=== PATIENT | female | born 2000 | race African-American/Black ===

== ENCOUNTER 2019-01-12 14:47 | Emergency (ER) | payer SELFPAY ==
[~2019-01-12] VITALS: Ht 170.2 cm; Wt 48.8 kg
[2019-01-12] MEDS ORDERED: AMOX500C PO (15:02)
--- NOTE | 2019-01-12 15:02 | PHYS DOC ---
Adult General Chief Complaint Chief Complaint: SORE THROAT HPI HPI Patient is a 18-year-old female who presents with complaint of sore throat for approximately a week. Patient states symptoms are worsening. She is not sure whether or not she is been running a fever. She denies any nausea or vomiting. She denies any chest pain. She also denies any cough or shortness breath.[] Review of Systems Review of Systems Constitutional: Denies fever or chills [] Eyes: Denies change in visual acuity, redness, or eye pain [] HENT: Positive sore throat [] Respiratory: Denies cough or shortness of breath [] Cardiovascular: No additional information not addressed in HPI [] Physical Exam Physical Exam Constitutional: Well developed, well nourished, no acute distress, non-toxic appearance. [] HENT: Normocephalic, atraumatic, bilateral external ears normal, pharyngeal erythema is noted without exudates. [] Neck: Normal range of motion, no tenderness, supple, no stridor. [] Cardiovascular:Heart rate regular rhythm, no murmur [] Lungs & Thorax: Bilateral breath sounds clear to auscultation [] EKG EKG [] Radiology/Procedures Radiology/Procedures [] Course & Med Decision Making Course & Med Decision Making Pertinent Labs and Imaging studies reviewed. (See chart for details) [] Dragon Disclaimer Dragon Disclaimer This electronic medical record was generated, in whole or in part, using a voice recognition dictation system. Departure Departure: Impression: Primary Impression: Pharyngitis Disposition: 01 HOME, SELF-CARE Condition: STABLE Referrals: PCP,UNKNOWN (PCP) Patient Instructions: Viral and Bacterial Pharyngitis Scripts Amoxicillin (AMOXICILLIN) 500 Mg Capsule 1 CAP PO TID for infection, #30 CAP Prov: SYEDA TIPTON Jr. DO 01/12/19 Problem Qualifiers Primary Impression: Pharyngitis Pharyngitis/tonsillitis etiology: unspecified etiology Qualified Codes: J02.9 - Acute pharyngitis, unspecified SYEDA TIPTON Jr. DO Jan 12, 2019 15:02
[2019-01-12 15:08] VITALS: BP 106/67
== END 2019-01-12 15:06 | disposition home or self-care (01) ==
LOC: ER 14:47
DX: J02.9 Acute pharyngitis, unspecified (principal)
CPT/HCPCS: 99283

== ENCOUNTER 2019-04-30 13:18 | Emergency (ER) | payer OTHER ==
[~2019-04-30] VITALS: Ht 160 cm; Wt 47.1 kg
[~2019-04-30 13:18] MED LIST: AMOX500C PO
[2019-04-30 13:25] VITALS: BP 129/82
--- NOTE | 2019-04-30 13:32 | PHYS DOC ---
Past History Past Medical History: Anemia Past Surgical History: No Surgical History Smoking: Less than 1pk/day (just quit when she found out she was ) Alcohol Use: Rarely (just quit when she found out she was ) Drug Use: Marijuana (just quit when she found out she was ) Adult General Chief Complaint Chief Complaint: VAGINAL BLEEDING [facility] Patient is a 18 year old female who presents for evaluation of vaginal spotting and some bleeding that started about 2 days ago. She also has some left lower abdominal tenderness. Patient states she has a positive home test and is scheduled to see her MARKET DEVELOPER in the next couple of days. Patient is a 1 para 0. Her last menstrual period was on March 17. Patient denies other complaints and is benign appearing Review of Systems Review of Systems Constitutional: Denies fever or chills [] Eyes: Denies change in visual acuity, redness, or eye pain [] HENT: Denies nasal congestion or sore throat [] Respiratory: Denies cough or shortness of breath [] Cardiovascular: No additional information not addressed in HPI [] GI: LLQ abdominal pain, some nausea, no vomiting or bloody stools, no diarrhea [] : Denies dysuria or hematuria [] Musculoskeletal: Denies back pain or joint pain [] Integument: Denies rash or skin lesions [] Neurologic: Denies headache, focal weakness or sensory changes [] Endocrine: Denies polyuria or polydipsia [] All other systems were reviewed and found to be within normal limits, except as documented in this note. Allergies Allergies Allergies Coded Allergies Type Severity Reaction Last Updated Verified No Known Drug Allergies 01/12/19 No Physical Exam Physical Exam Constitutional: Well developed, well nourished, mild acute distress, non-toxic appearance. [] HENT: Normocephalic, atraumatic, bilateral external ears normal, oropharynx moist, no oral exudates, nose normal. [] Eyes: PERRL, EOMI, conjunctiva normal, no discharge. [] Neck: Normal range of motion, no tenderness, supple[] Cardiovascular:Heart rate regular rhythm, no murmur [] Lungs & Thorax: Bilateral breath sounds clear to auscultation [] Abdomen: Bowel sounds normal, soft, minimal lower and left lower tender, no masses. [] Skin: Warm, dry, no erythema, no rash. [] Back: No tenderness, no CVA tenderness. [] Extremities: No tenderness, no cyanosis, no clubbing, ROM intact, no edema. [] Neurologic: Alert and oriented X 3, normal motor function, normal sensory function, no focal deficits noted. [] Psychologic: Affect normal, judgement normal, mood normal. [] HATCHERY LABORER: Nursing plumber's helper present. Os slightly open and dark blood present. Minimal uterine tenderness, no adnexal tenderness EKG EKG [] Radiology/Procedures Radiology/Procedures PATIENT: JONATHON PABON ACCOUNT: [id number] : 2000 LOCATION: ER AGE: 18 SEX: F EXAM STATUS: REG ER ORD. PHYSICIAN: MAHOGANY ANTONIO DO REASON: early , LLQ, pain and spotting PROCEDURE: OB <14 WKS OB ultrasound less than 14 weeks 04/30/2019 CLINICAL HISTORY: Early first trimester with left sided pelvic pain and vaginal spotting. TECHNIQUE: Using the distended urinary bladder as a sonographic window, a real-time ultrasound examination of pelvis was performed. Multiple images were obtained. The patient refused transvaginal imaging. FINDINGS: The uterus is normal in size. It measures 10.1 x 5.4 x 3.6 cm in longitudinal, transverse, and AP dimensions. An oval-shaped fluid collection is seen within the endometrial canal consistent with an early gestational sac. There is a small yolk sac seen within the structure. No embryonic pole is seen at this time to confirm a living IUP. The mean sac diameter is 8.0 mm which corresponds to an estimated gestational age by ultrasound of 5 weeks 4 days plus or minus a standard deviation of 6 days. The uterus is otherwise within normal limits. Both ovaries are within normal limits in size and echogenicity. The right ovary measures 2.9 x 2.8 x 1.9 cm in size. The left ovary measures 3.0 x 2.6 x 1.4 cm in size. Normal color-flow and postoperative imaging to both ovaries is seen. No adnexal mass is noted. No free fluid is seen. IMPRESSION: Findings consistent most likely with a very early IUP as discussed above. Electronically signed by: Joni Cope MD (04/30/2019 2:36 PM) [facility] – [place], [place] DICTATED AND SIGNED BY: JONI COPE MD DATE: 04/30/19 1436 CC: PCP,SHELBIE; MAHOGANY ANTONIO DO ~ Course & Med Decision Making Course & Med Decision Making Pertinent Labs and Imaging studies reviewed. (See chart for details) 1345 urine hCG is positive. Will order sonogram to evaluate IUP 1455 early IUP noted on vaginal US. No obvious ectopic . Beta quant hCG was approximately 7000. Patient is O+ blood type. CBC and chemistries results unremarkable. Differential diagnosis included ectopic versus threatened miscarriage versus early bleeding. 1310 after pelvic exam I suspect patient is a threatened miscarriage. She will be given detailed follow-up instructions. She already has an appointment to see her MARKET DEVELOPER tomorrow Paradise Disclaimer Paradise Disclaimer This electronic medical record was generated, in whole or in part, using a voice recognition dictation system. Departure Departure: Impression: Primary Impression: Early stage of Additional Impression: Threatened in first trimester Disposition: HOME, SELF-CARE Condition: STABLE Referrals: PCPSHELBIE (PCP) Patient Instructions: Threatened Miscarriage, [id number] Additional Instructions: Keep your appointment with your MARKET DEVELOPER tomorrow. Pelvic rest meaning no intercourse or tampons. If you have excessive heavy bleeding more than 1 pad per hour return to the hospital. Otherwise you will need a repeat blood hormone test in several days as well as a repeat sonogram. Those could be scheduled through your MARKET DEVELOPER. Follow-up instructions and return if worse Scripts Pnv Cmb#95/Ferrous Fumarate/Fa ( TABLET) 1 Each Tablet 1 TAB PO DAILY for early , #7 TAB 0 Refills Prov: MAHOGANY ANTONIO DO 04/30/19 Problem Qualifiers MAHOGANY ANTONIO DO Apr 30, 2019 13:32
[2019-04-30 13:53] LABS: BASO # 0.1 x10^3/uL (0.0-0.2); BASO % 1 % (0-3); EOS # 0.1 x10^3/uL (0.0-0.7); EOS % 1 % (0-3); HEMATOCRIT 37.9 % (36.0-47.0); HEMOGLOBIN 12.7 g/dL (12.0-15.5); LYMPH # 1.7 x10^3/uL (1.0-4.8); LYMPH % 20 % (24-48); MEAN CORPUSCULAR HEMOGLOBIN 28 pg (25-35); MEAN CORPUSCULAR HGB CONC 33 g/dL (31-37); MEAN CORPUSCULAR VOLUME 82 fL (79-100); MONO # 0.5 x10^3/uL (0.0-1.1); MONO % 6 % (0-9); NEUT # 5.9 x10^3uL (1.8-7.7); NEUT % 72 % (31-73); PLATELET COUNT 189 x10^3/uL (140-400); RED BLOOD COUNT 4.61 x10^6/uL (3.50-5.40); RED CELL DISTRIBUTION WIDTH 17.2 % (11.5-14.5); WHITE BLOOD COUNT 8.2 x10^3/uL (4.0-11.0)
[2019-04-30 14:00] LABS: CALCIUM 9.4 mg/dL (8.5-10.1); CREATININE 0.6 mg/dL (0.6-1.0); GFR 154.2; POTASSIUM 3.3 mmol/L (3.5-5.1)
[2019-04-30 14:14] LABS: ALBUMIN 4.2 g/dL (3.4-5.0); ALBUMIN/GLOBULIN RATIO 1.2 (1.0-1.7); TOTAL BILIRUBIN 0.5 mg/dL (0.2-1.0); TOTAL PROTEIN 7.8 g/dL (6.4-8.2)
[2019-04-30 14:26] LABS: BACTERIA,URINE FEW /HPF (0-FEW); BILIRUBIN,URINE NEG (NEG); CLARITY,URINE HAZY; COLOR,URINE YELLOW; GLUCOSE,URINE NEG (NEG); NITRITE,URINE NEG (NEG); SQUAMOUS EPITHELIAL CELL,UR FEW /LPF
--- NOTE | 2019-04-30 14:39 | RAD ---
OB ultrasound less than 14 weeks 04/30/2019 CLINICAL HISTORY: Early first trimester with left sided pelvic pain and vaginal spotting. TECHNIQUE: Using the distended urinary bladder as a sonographic window, a real-time ultrasound examination of pelvis was performed. Multiple images were obtained. The patient refused transvaginal imaging. FINDINGS: The uterus is normal in size. It measures 10.1 x 5.4 x 3.6 cm in longitudinal, transverse, and AP dimensions. An oval-shaped fluid collection is seen within the endometrial canal consistent with an early gestational sac. There is a small yolk sac seen within the structure. No embryonic pole is seen at this time to confirm a living IUP. The mean sac diameter is 8.0 mm which corresponds to an estimated gestational age by ultrasound of 5 weeks 4 days plus or minus a standard deviation of 6 days. The uterus is otherwise within normal limits. Both ovaries are within normal limits in size and echogenicity. The right ovary measures 2.9 x 2.8 x 1.9 cm in size. The left ovary measures 3.0 x 2.6 x 1.4 cm in size. Normal color-flow and postoperative imaging to both ovaries is seen. No adnexal mass is noted. No free fluid is seen. IMPRESSION: Findings consistent most likely with a very early IUP as discussed above. Electronically signed by: Joni Cope MD (04/30/2019 2:36 PM) [facility] – [place]
[2019-04-30] MEDS ORDERED: PNV1TABL25 PO (15:16)
[2019-05-01 20:07] LABS: CHLAMYDIA PROBE Negative (Negative)
== END 2019-04-30 15:20 | disposition home or self-care (01) ==
LOC: ER 13:18
DX: O20.0 Threatened abortion (principal); O99.011 Anemia complicating pregnancy, first trimester; Z87.891 Personal history of nicotine dependence; Z3A.00 Weeks of gestation of pregnancy not specified
CPT/HCPCS: 36415; 76801; 80053; 81001; 81025; 84702; 85025; 86900; 86901; 87086; 87491; 87591; 99284; Q0111

== ENCOUNTER 2020-01-09 09:11 | Emergency (ER) | payer OTHER ==
[~2020-01-09] VITALS: Ht 160 cm; Wt 47.1 kg
[~2020-01-09 09:11] MED LIST changes: +PNV1TABL25 PO
[2020-01-09 09:33] VITALS: BP 124/86
--- NOTE | 2020-01-09 10:00 | PHYS DOC ---
Past History Past Medical History: Anemia Past Surgical History: No Surgical History Smoking: Less than 1pk/day Alcohol Use: None Drug Use: Marijuana General Adult EDM: Chief Complaint: ABDOMINAL PAIN IN HPI: HPI: History obtained from patient. Patient is a 19-year-old female G2, P0 with no reported PMH who presents with chief complaint of nausea and vomiting. Yesterday she was 12 weeks . She states that last night after eating AAA she had 2 episodes of vomiting. She states earlier this morning she had 2 episodes of vomiting again. She noted some red-tinged vomitus prior to arrival. She notes that she has been taking Zofran in the mornings for her morning sickness but does not like some of the side effects of this medication. States it makes her feel somewhat sleepy. She does note that she smokes marijuana to help with her nausea. She does note some mild right upper quadrant abdominal discomfort after vomiting. She does think that she has had an ultrasound to confirm IUP but is not sure. Denies vaginal bleeding or discharge. Denies dysuria, hematuria, or polyuria. Denies any abdominal surgical history. Denies shortness of breath, cough or fevers. No other complaints. Review of Systems: Review of Systems: Constitutional: Denies fever or chills Eyes: Denies change in visual acuity HENT: Denies nasal congestion or sore throat Respiratory: Denies cough or shortness of breath Cardiovascular: Denies chest pain or edema GI: Positive for nausea and vomiting : Denies dysuria Musculoskeletal: Denies back pain or joint pain Integument: Denies rash Neurologic: Denies headache, focal weakness or sensory changes Endocrine: Denies polyuria or polydipsia Lymphatic: Denies swollen glands Psychiatric: Denies depression or anxiety Allergies: Allergies: Allergies Coded Allergies Type Severity Reaction Last Updated Verified No Known Drug Allergies 01/12/19 No Physical Exam: PE: Constitutional: Well developed, well nourished, no acute distress, non-toxic appearance. [] HENT: Normocephalic, atraumatic, bilateral external ears normal, oropharynx moist, no oral exudates, nose normal. [] Eyes: PERRLA, EOMI, conjunctiva normal, no discharge. [] Neck: Normal range of motion, no tenderness, supple, no stridor. [] Cardiovascular:Heart rate regular rhythm, no murmur [] Lungs & Thorax: Bilateral breath sounds clear to auscultation [] Abdomen: Soft, nontender, nonacute abdomen. No involuntary guarding or rigidity noted. No acute peritonitis. Skin: Warm, dry, no erythema, no rash. [] Back: No tenderness, no CVA tenderness. [] Extremities: No tenderness, no cyanosis, no clubbing, ROM intact, no edema. [] Neurologic: Alert and oriented X 3, normal motor function, normal sensory function, no focal deficits noted. [] Psychologic: Affect normal, judgement normal, mood normal. [] Current Patient Data: Labs: Laboratory Tests Test 01/09/20 09:58 01/09/20 10:49 White Blood Count 8.6 x10^3/uL Red Blood Count 4.42 x10^6/uL Hemoglobin 11.6 g/dL Hematocrit 35.6 % Mean Corpuscular Volume 81 fL Mean Corpuscular Hemoglobin 26 pg Mean Corpuscular Hemoglobin Concent 32 g/dL Red Cell Distribution Width 16.7 % Platelet Count 195 x10^3/uL Neutrophils (%) (Auto) 76 % Lymphocytes (%) (Auto) 17 % Monocytes (%) (Auto) 6 % Eosinophils (%) (Auto) 0 % Basophils (%) (Auto) 1 % Neutrophils # (Auto) 6.5 x10^3uL Lymphocytes # (Auto) 1.4 x10^3/uL Monocytes # (Auto) 0.5 x10^3/uL Eosinophils # (Auto) 0.0 x10^3/uL Basophils # (Auto) 0.1 x10^3/uL Maternal Serum HCG Beta Subunit 086647 mIU/mL Sodium Level 131 mmol/L Potassium Level 3.3 mmol/L Chloride Level 97 mmol/L Carbon Dioxide Level 25 mmol/L Anion Gap 9 Blood Urea Nitrogen 10 mg/dL Creatinine 0.6 mg/dL Estimated GFR (Cockcroft-Gault) 152.7 BUN/Creatinine Ratio 17 Glucose Level 107 mg/dL Calcium Level 9.7 mg/dL Total Bilirubin 0.5 mg/dL Aspartate Amino Transf (AST/SGOT) 20 U/L Alanine Aminotransferase (ALT/SGPT) 16 U/L Alkaline Phosphatase 52 U/L Total Protein 8.1 g/dL Albumin 3.7 g/dL Albumin/Globulin Ratio 0.8 Lipase 70 U/L Urine Collection Type Unknown Urine Color Yellow Urine Clarity Hazy Urine pH 7.0 Urine Specific Morrill 1.025 Urine Protein Neg Urine Glucose (UA) Neg mg/dL Urine Ketones (Stick) Neg mg/dL Urine Blood Trace Urine Nitrite Neg Urine Bilirubin Neg Urine Urobilinogen Dipstick 2.0 mg/dL Urine Leukocyte Esterase Neg Urine RBC 1-2 /HPF Urine WBC Occ /HPF Urine Squamous Epithelial Cells Mod /LPF Urine Amorphous Sediment Present /HPF Urine Bacteria Few /HPF Vital Signs: Vital Signs Date Time Temp Pulse Resp B/P (MAP) Pulse Ox O2 Delivery O2 Flow Rate FiO2 01/09/20 09:33 97.7 80 14 124/86 (99) 100 Room Air EKG: EKG: [] Radiology/Procedures: Radiology/Procedures: [place] [address] IMAGING REPORT Signed PATIENT: JONATHON PABON ACCOUNT: [id number] : 2000 LOCATION: ER AGE: 19 SEX: F EXAM STATUS: REG ER ORD. PHYSICIAN: SIM CRAIG DO REASON: abdominal pain with PROCEDURE: OB <14 WKS EXAM: First Trimester OB Ultrasound INDICATION: Reason: abdominal pain with / Spl. Instructions: / History: TECHNIQUE: Real-time first trimester obstetrical ultrasound was performed with permanent freeze-frame documentation. COMPARISON: None. FINDINGS: GESTATIONAL SAC: Gestational sac shape and amniotic fluid volume within normal limits. POLE: Unremarkable. Yolk sac not visualized. CROWN RUMP LENGTH: 5.6 cm HEART RATE: 153 bpm PLACENTA: Too early to adequately assess. MATERNAL UTERUS: Uterus measures 8.4 x 8.9 x 8.8 cm and appears normal. Cervical length is 2.8 cm. MATERNAL ADNEXA: Normal ovaries. Right ovary measures 3.8 x 2.0 x 1.9 cm. Left ovary measures 3.3 x 2.6 x 2.2 cm. AGE/DATES: Gestational Age by LMP: 12 weeks 0 days Gestational Age by US: 12 weeks 1 day EDC by LMP: July 23, 2020 EDC by US: July 22, 2020 IMPRESSION: Normal viable first trimester OB ultrasound. Estimated gestational age of 12 weeks 1 day and EDC of July 22, 2020. Electronically signed by: Dionte Dao MD (01/09/2020 10:16 AM) [id number] DICTATED AND SIGNED BY: DIONTE DAO MD DATE: 01/09/20 1016 CC: PCPSHELBIE; SIM CRAIG DO ~MTH0 0 [] Heart Score: Risk Factors: Risk Factors: DM, Current or recent (<one month) smoker, HTN, HLP, family history of CAD, obesity. Risk Scores: Score 0 - 3: 2.5% MACE over next 6 weeks - Discharge Home Score 4 - 6: 20.3% MACE over next 6 weeks - Admit for Clinical Observation Score 7 - 10: 72.7% MACE over next 6 weeks - Early Invasive Strategies Course & Med Decision Making: Course & Med Decision Making Pertinent Labs and Imaging studies reviewed. (See chart for details) [] Patient is a well-appearing 19-year-old female who presents with chief complaint of nausea and vomiting that began yesterday evening associated . Initial vital signs unremarkable. Exam overall reassuring. Pelvic exam deferred as she is not having any lower abdominal pain, vaginal bleeding or discharge. Given she did report some mild right upper quadrant pain basic labs were obtained. No signs of LFT elevation or lipase elevation. Urinalysis does not reveal signs consistent with infection. Ultrasound was obtained revealing intrauterine approximate 12 weeks and 1 day. Her symptoms were well controlled and she has tolerated p.o. the emergency department. Repeat abdominal exam remains benign. Overall I do feel she is appropriate for discharge home. She states that she does not like the side effects of Zofran. She will be discharged home with a prescription of Diclegis. Instructed to follow-up with her primary care physician and REGIONAL CONTROLLER in the next 2 to 3 days. Return precautions discussed and understood. Stable for discharge home. Dragon Disclaimer: Dragjaleel Disclaimer: This electronic medical record was generated, in whole or in part, using a voice recognition dictation system. Departure Departure: Impression: Primary Impression: Nausea and vomiting Qualified Codes: R11.2 - Nausea with vomiting, unspecified Additional Impression: Qualified Codes: Z3A.12 - 12 weeks gestation of Disposition: 01 DC HOME SELF CARE/HOMELESS Condition: STABLE Referrals: PCPSHELBIE (PCP) Patient Instructions: Nausea and Vomiting Additional Instructions: Please follow-up with your REGIONAL CONTROLLER and primary care physician next week. Scripts Doxylamine/Pyridoxine Hcl (MATHIEU CAANLES 10-10 MG TABLET) 1 Each Tablet.dr 2 TAB PO QHS for nausea for 10 Days, #20 TAB 0 Refills Prov: SIM CRAIG DO 01/09/20 SIM CRAIG DO Jan 09, 2020 10:00
--- NOTE | 2020-01-09 10:18 | RAD ---
EXAM: First Trimester OB Ultrasound INDICATION: Reason: abdominal pain with / Spl. Instructions: / History: TECHNIQUE: Real-time first trimester obstetrical ultrasound was performed with permanent freeze-frame documentation. COMPARISON: None. FINDINGS: GESTATIONAL SAC: Gestational sac shape and amniotic fluid volume within normal limits. POLE: Unremarkable. Yolk sac not visualized. CROWN RUMP LENGTH: 5.6 cm HEART RATE: 153 bpm PLACENTA: Too early to adequately assess. MATERNAL UTERUS: Uterus measures 8.4 x 8.9 x 8.8 cm and appears normal. Cervical length is 2.8 cm. MATERNAL ADNEXA: Normal ovaries. Right ovary measures 3.8 x 2.0 x 1.9 cm. Left ovary measures 3.3 x 2.6 x 2.2 cm. AGE/DATES: Gestational Age by LMP: 12 weeks 0 days Gestational Age by US: 12 weeks 1 day EDC by LMP: July 23, 2020 EDC by US: July 22, 2020 IMPRESSION: Normal viable first trimester OB ultrasound. Estimated gestational age of 12 weeks 1 day and EDC of July 22, 2020. Electronically signed by: Juan Dao MD (01/09/2020 10:16 AM) [id number]
[2020-01-09] MEDS ORDERED: DOXY1TAB3 PO (10:25)
[2020-01-09 10:32] LABS: BASO # 0.1 x10^3/uL (0.0-0.2); BASO % 1 % (0-3); EOS % 0 % (0-3); HEMATOCRIT 35.6 % (36.0-47.0); HEMOGLOBIN 11.6 g/dL (12.0-15.5); LYMPH # 1.4 x10^3/uL (1.0-4.8); LYMPH % 17 % (24-48); MEAN CORPUSCULAR HEMOGLOBIN 26 pg (25-35); MEAN CORPUSCULAR HGB CONC 32 g/dL (31-37); MEAN CORPUSCULAR VOLUME 81 fL (79-100); MONO # 0.5 x10^3/uL (0.0-1.1); MONO % 6 % (0-9); NEUT # 6.5 x10^3uL (1.8-7.7); NEUT % 76 % (31-73); PLATELET COUNT 195 x10^3/uL (140-400); RED BLOOD COUNT 4.42 x10^6/uL (3.50-5.40); RED CELL DISTRIBUTION WIDTH 16.7 % (11.5-14.5); WHITE BLOOD COUNT 8.6 x10^3/uL (4.0-11.0)
[2020-01-09 10:37] LABS: CALCIUM 9.7 mg/dL (8.5-10.1); CREATININE 0.6 mg/dL (0.6-1.0); GFR 152.7; POTASSIUM 3.3 mmol/L (3.5-5.1)
[2020-01-09 10:42] LABS: ALBUMIN 3.7 g/dL (3.4-5.0); ALBUMIN/GLOBULIN RATIO 0.8 (1.0-1.7); TOTAL BILIRUBIN 0.5 mg/dL (0.2-1.0); TOTAL PROTEIN 8.1 g/dL (6.4-8.2)
[2020-01-09 11:08] LABS: BILIRUBIN,URINE NEG (NEG); CLARITY,URINE HAZY; COLOR,URINE YELLOW; GLUCOSE,URINE NEG (NEG)
[2020-01-09 11:09] LABS: AMORPHOUS SEDIMENT,UR PRESENT /HPF; BACTERIA,URINE FEW /HPF (0-FEW); NITRITE,URINE NEG (NEG); SQUAMOUS EPITHELIAL CELL,UR MOD /LPF; WBC,URINE OCC /HPF (0-4)
== END 2020-01-09 11:19 | disposition home or self-care (01) ==
LOC: ER 09:11
DX: O21.9 Vomiting of pregnancy, unspecified (principal); D64.9 Anemia, unspecified; F12.90 Cannabis use, unspecified, uncomplicated; F17.200 Nicotine dependence, unspecified, uncomplicated; Z3A.12 12 weeks gestation of pregnancy
CPT/HCPCS: 36415; 76801; 80053; 81001; 83690; 84702; 85025; 99284

== ENCOUNTER 2020-05-11 10:13 | Emergency (ER) | payer OTHER ==
[~2020-05-11] VITALS: Ht 160 cm; Wt 52.0 kg
[~2020-05-11 10:13] MED LIST changes: +DOXY1TAB3 PO
[2020-05-11 10:25] VITALS: BP 127/62
[2020-05-11] MEDS ORDERED: METOCLOPRAMIDE 10 MG TABLET PO ONE (11:00)
[2020-05-11] MEDS ORDERED: METOCLOPRAMIDE HCL 10 MG/2 ML VIAL. ONE (11:11)
[2020-05-11] MEDS ORDERED: IV NORMAL SALINE 1,000ML 1,000 ML IV ONE (11:30)
[2020-05-11 11:31] LABS: BASO # 0.1 x10^3/uL (0.0-0.2); BASO % 1 % (0-3); EOS % 0 % (0-3); HEMATOCRIT 27.6 % (36.0-47.0); HEMOGLOBIN 8.7 g/dL (12.0-15.5); LYMPH # 1.3 x10^3/uL (1.0-4.8); LYMPH % 12 % (24-48); MEAN CORPUSCULAR HEMOGLOBIN 23 pg (25-35); MEAN CORPUSCULAR HGB CONC 32 g/dL (31-37); MEAN CORPUSCULAR VOLUME 73 fL (79-100); MONO # 0.7 x10^3/uL (0.0-1.1); MONO % 7 % (0-9); NEUT # 8.8 x10^3uL (1.8-7.7); NEUT % 80 % (31-73); PLATELET COUNT 127 x10^3/uL (140-400); RED BLOOD COUNT 3.76 x10^6/uL (3.50-5.40); RED CELL DISTRIBUTION WIDTH 17.2 % (11.5-14.5); WHITE BLOOD COUNT 10.9 x10^3/uL (4.0-11.0)
[2020-05-11 11:33] LABS: BILIRUBIN,URINE NEG (NEG); CLARITY,URINE CLOUDY; COLOR,URINE YELLOW; GLUCOSE,URINE NEG (NEG)
[2020-05-11 11:34] LABS: AMORPHOUS SEDIMENT,UR PRESENT /HPF; BACTERIA,URINE FEW /HPF (0-FEW); NITRITE,URINE NEG (NEG); RBC,URINE OCC /HPF (0-2); SQUAMOUS EPITHELIAL CELL,UR MANY /LPF
--- NOTE | 2020-05-11 11:47 | PHYS DOC ---
Past History Past Medical History: Hypothyroid, Other Additional Past Medical Histor: Sickle cell trait Past Surgical History: No Surgical History Smoking: Less than 1pk/day Alcohol Use: None Drug Use: Marijuana Social History Narrative: Occasional THC Adult General Chief Complaint Chief Complaint: VOMITING IN [facility] HPI Patient is a 19-year-old female who states she is 29 weeks by last menstrual period with a past history of hypothyroidism now presenting emergency department complaining of onset of nausea. Patient states that for the last 3 days she is been having worsening nausea since she associates with her . Patient is the last day she vomited 4 times nonbloody nonbilious most of the morning. Patient states her nausea recurred again this morning. Patient denies taking any medication prior. Denies any abdominal pain, dizziness, lightheadedness, fever, chills, back pain or chest pain. Review of Systems Review of Systems Constitutional: Denies fever or chills [] Eyes: Denies change in visual acuity, redness, or eye pain [] HENT: Denies nasal congestion or sore throat [] Respiratory: Denies cough or shortness of breath [] Cardiovascular: No additional information not addressed in HPI [] GI: Denies abdominal pain, nausea, vomiting, bloody stools or diarrhea [] : Denies dysuria or hematuria [] Musculoskeletal: Denies back pain or joint pain [] Integument: Denies rash or skin lesions [] Neurologic: Denies headache, focal weakness or sensory changes [] Endocrine: Denies polyuria or polydipsia [] All other systems were reviewed and found to be within normal limits, except as documented in this note. Current Medications Current Medications Current Medications Medications (Trade) Dose Ordered Sig/Alley Start Time Stop Time Status Last Admin Dose Admin Metoclopramide HCl (Reglan Vial) 10 mg STK-MED ONCE 05/11/20 11:11 05/11/20 11:11 DC Metoclopramide HCl (Reglan) 10 mg 1X ONCE 05/11/20 11:00 05/11/20 11:01 DC Sodium Chloride 1,000 ml @ 1,000 mls/hr 1X ONCE 05/11/20 11:30 05/11/20 12:29 05/11/20 11:32 1,000 MLS/HR Allergies Allergies Allergies Coded Allergies Type Severity Reaction Last Updated Verified No Known Drug Allergies 05/11/20 No Physical Exam Physical Exam Constitutional: Well developed, well nourished, no acute distress, non-toxic appearance. [] HENT: Normocephalic, atraumatic, bilateral external ears normal, oropharynx moist, no oral exudates, nose normal. [] Eyes: PERRLA, EOMI, conjunctiva normal, no discharge. [] Neck: Normal range of motion, no tenderness, supple, no stridor. [] Cardiovascular:Heart rate regular rhythm, no murmur [] Lungs & Thorax: Bilateral breath sounds clear to auscultation [] Abdomen: Bowel sounds normal, soft, no tenderness, no masses, no pulsatile masses. Gravid uterus consistent with dates Skin: Warm, dry, no erythema, no rash. [] Back: No tenderness, no CVA tenderness. [] Extremities: No tenderness, no cyanosis, no clubbing, ROM intact, no edema. [] Neurologic: Alert and oriented X 3, normal motor function, normal sensory function, no focal deficits noted. [] Psychologic: Affect normal, judgement normal, mood normal. [] Current Patient Data Vital Signs Vital Signs Date Time Temp Pulse Resp B/P (MAP) Pulse Ox O2 Delivery O2 Flow Rate FiO2 05/11/20 10:25 97.9 80 16 127/62 (83) 100 Lab Results Laboratory Tests Test 05/11/20 10:27 05/11/20 11:05 Urine Collection Type Unknown Urine Color Yellow Urine Clarity Cloudy Urine pH >8.5 Urine Specific [place] 1.015 Urine Protein 30 mg/dl (NEG-TRACE) Urine Glucose (UA) Neg mg/dL (NEG) Urine Ketones (Stick) Neg mg/dL (NEG) Urine Blood Neg (NEG) Urine Nitrite Neg (NEG) Urine Bilirubin Neg (NEG) Urine Urobilinogen Dipstick 1.0 mg/dL (0.2 mg/dL) Urine Leukocyte Esterase Neg (NEG) Urine RBC Occ /HPF (0-2) Urine WBC 1-4 /HPF (0-4) Urine Squamous Epithelial Cells Many /LPF Urine Amorphous Sediment Present /HPF Urine Bacteria Few /HPF (0-FEW) White Blood Count 10.9 x10^3/uL (4.0-11.0) Red Blood Count 3.76 x10^6/uL (3.50-5.40) Hemoglobin 8.7 g/dL (12.0-15.5) L Hematocrit 27.6 % (36.0-47.0) L Mean Corpuscular Volume 73 fL (79-100) L Mean Corpuscular Hemoglobin 23 pg (25-35) L Mean Corpuscular Hemoglobin Concent 32 g/dL (31-37) Red Cell Distribution Width 17.2 % (11.5-14.5) H Platelet Count 127 x10^3/uL (140-400) L Neutrophils (%) (Auto) 80 % (31-73) H Lymphocytes (%) (Auto) 12 % (24-48) L Monocytes (%) (Auto) 7 % (0-9) Eosinophils (%) (Auto) 0 % (0-3) Basophils (%) (Auto) 1 % (0-3) Neutrophils # (Auto) 8.8 x10^3uL (1.8-7.7) H Lymphocytes # (Auto) 1.3 x10^3/uL (1.0-4.8) Monocytes # (Auto) 0.7 x10^3/uL (0.0-1.1) Eosinophils # (Auto) 0.0 x10^3/uL (0.0-0.7) Basophils # (Auto) 0.1 x10^3/uL (0.0-0.2) EKG EKG [] Radiology/Procedures Radiology/Procedures [] Heart Score C/O Chest Pain: No Risk Factors: Risk Factors: DM, Current or recent (<one month) smoker, HTN, HLP, family history of CAD, obesity. Risk Scores: Risk Factors: DM, Current or recent (<one month) smoker, HTN, HLP, family history of CAD, obesity. Course & Med Decision Making Course & Med Decision Making Pertinent Labs and Imaging studies reviewed. (See chart for details) 1-year-old female 29 weeks now complaining of new onset of nausea likely related to the patient's . heart tones are 144 and patient's vital signs are within normal limits. The patient is on vomiting will obtain labs make sure there is no significant underlying etiology and treat the patient symptomatically with Reglan. 11:46 -after getting Reglan patient became agitated and irritated. Want to evaluate the patient and she is stating that she wants to leave AGAINST MEDICAL ADVICE. I offered the patient further treatment with other medications to help with her anxiety and agitation. Patient refused saying that she still wants to leave AGAINST MEDICAL ADVICE. Explained to the patient that at this time cannot ensure safety from any life or limb threatening disease and she verbalized understanding and still wanted to leave Dragon Disclaimer Dragon Disclaimer This electronic medical record was generated, in whole or in part, using a voice recognition dictation system. Departure Departure: Impression: Primary Impression: Nausea and vomiting Additional Impression: Disposition: 07 AMA/ELOPED/LWBS Condition: STABLE Referrals: PCP,NO (PCP) Problem Qualifiers MARSHALL ANSARI MD May 11, 2020 11:47
[2020-05-11 11:51] LABS: CALCIUM 8.8 mg/dL (8.5-10.1); CREATININE 0.6 mg/dL (0.6-1.0); GFR 152.7; POTASSIUM 3.6 mmol/L (3.5-5.1)
[2020-05-11 11:53] LABS: ALBUMIN 2.8 g/dL (3.4-5.0); ALBUMIN/GLOBULIN RATIO 0.7 (1.0-1.7); TOTAL BILIRUBIN 0.3 mg/dL (0.2-1.0); TOTAL PROTEIN 6.7 g/dL (6.4-8.2)
--- NOTE | 2020-05-11 13:52 | EKG ---
[address] [address] Test Date: 2020-05-11 Test Time: 10:57:01 Pat Name: JONATHON PABON Department: Room: Gender: F Sign Language Teacher: LUIZ : 2000 Requested By: MARSHALL ANSARI Order Number: [id number] Reading MD: Measurements Intervals [place] Rate: 78 P: 26 CO: 150 QRS: 48 QRSD: 70 T: -5 QT: 376 QTc: 432 Interpretive Statements SINUS RHYTHM T ABNORMALITY IN INFERIOR LEADS ABNORMAL ECG RI6.02 No previous ECG available for comparison
== END 2020-05-11 11:00 | disposition left against medical advice (07) ==
LOC: ER 10:13
DX: O21.9 Vomiting of pregnancy, unspecified (principal); O99.333 Smoking (tobacco) complicating pregnancy, third trimester; Z3A.29 29 weeks gestation of pregnancy
CPT/HCPCS: 36415; 80053; 81001; 85025; 93005; 99284; J7030; 96360